=== PATIENT | female | born 1990 | race African-American/Black ===

== ENCOUNTER 2016-12-14 09:59 | Day surgery (SDC) | payer OTHER ==
[~2016-12-14] VITALS: Ht 167.6 cm; Wt 69.0 kg
[~2016-12-14 09:59] MED LIST: NOHOMEMEDS
[2016-12-14] MEDS ORDERED: VICODIN 5-3001 EACH PO (10:28)
[2016-12-14] MEDS ORDERED: PROBIOTIC1 EAC1 PO (10:29)
[2016-12-14 10:38] VITALS: BP 116/75
[2016-12-14 10:53] LABS: ADD MIUA? YES; BILIRUBIN NEGATIVE; BLOOD MODERATE; COLOR YELLOW ((YELLOW)); GLUCOSE (STRIP) NEGATIVE; KETONES NEGATIVE; LEUKOCYTES NEGATIVE; NITRITE NEGATIVE; PROTEIN (STRIP) NEGATIVE; SPECIFIC GRAVITY 1.017 (1.000-1.030); UROBILINOGEN 0.2 MG/DL (0.2-1.0)
[2016-12-14 10:57] LABS: BACTERIA NONE SEEN /HPF; EPITHELIAL CELLS 1+ /HPF; MUCUS NONE SEEN /LPF; RED BLOOD CELLS 0-5 /HPF (0-5); WHITE BLOOD CELLS 0-5 /HPF (0-5)
[2016-12-14 11:02] LABS: HEMATOCRIT 38.7 % (36.0-46.0); MCH 32.3 PG (29.0-34.0); MCHC 33.9 G/DL (30.0-36.0); MCV 95.6 FL (83-99); MEAN PLAT.VOLUME 9.9 uM^3 (9.5-12.4); PLATELET COUNT 197 K/uL (156-360); RBC DIS.WIDTH-CV 11.4 % (11.8-14.6); RBC DIS.WIDTH-SD 40.2 % (39-53); RED BLOOD COUNT 4.05 M/uL (3.80-5.20); WHITE BLOOD COUNT 6.2 K/uL (4.1-10.2)
[2016-12-14 12:55] VITALS: BP 108/67
[2016-12-14 13:40] VITALS: BP 115/67
== END 2016-12-14 13:40 | disposition home or self-care (01) ==
LOC: SDC 09:59
PROVIDERS: Family Medicine
PROC: 10D17ZZ Extraction of Products of Conception, Retained, Via Natural or Artificial Opening (ICD-10-PCS; principal; 2016-12-14)
DX: O03.4 Incomplete spontaneous abortion without complication (principal); F17.210 Nicotine dependence, cigarettes, uncomplicated
CPT/HCPCS: 81003; 85027; 86850; 86900; 86901; 88305; J1100; J1885; J2250; J2405; J2710; J3010